=== PATIENT | male | born 1950 | race Caucasian/White ===

== ENCOUNTER 2021-06-09 13:11 | Inpatient (IN) ==
[2021-06-09] MEDS ORDERED: D5% in Water 1,000 ML IVC PRN (15:46)
[2021-06-09] MEDS ORDERED: *HR* Dextrose 50 % in Water (Syg) 50 ML SYRINGE IVP PRN (15:46)
[2021-06-09] MEDS ORDERED: Dextrose Gel 15 GM/37.5 ML TUBE PO PRN ×2 (15:46)
[2021-06-09] MEDS ORDERED: Insulin DETEMIR 100 UNIT/ML per UNIT SUBQ ONE (22:45)
[2021-06-09] MEDS: Apixaban 5 MG TABLET PO SCH (23:40)
[2021-06-09] MEDS: *HR* Metformin 500 MG TABLET PO SCH (23:40)
[2021-06-09] MEDS: BuPROPion SR (12 HR) 150 MG TABLET PO SCH (23:40)
[2021-06-09] MEDS: Insulin LISPRO 300 UNITS/3 ML VIAL SUBQ SCH ×2 (23:50→23:53)
[2021-06-09] MEDS: Pilocarpine 2% OPTH 15 ML BOTTLE LEFT EYE SCH (23:51)
[2021-06-09] MEDS: Brinzolamide 1% 10 ML BOTTLE BOTH EYES SCH (23:51)
[2021-06-09] MEDS: NETARSUDIL MESYLATE 0.02% OP SCH (23:52)
[2021-06-10 06:05] LABS: Eosinophils % 5.3 %; Hematocrit 32.9 % (37.5-50.1); Hemoglobin 10.9 g/dL (12.9-16.9); Immature Granulocytes % 0.7 % (0-4); Lymphocytes % 19.5 %; Mean Corpuscular HGB Conc 33.1 g/dL (31.6-35.5); Mean Corpuscular Hemoglobin 27.1 pg (28.0-33.3); Mean Corpuscular Volume 81.8 fL (83.0-100.0); Monocytes % 12.6 %; Platelet Count 151 K/mcL (140-400); Red Blood Count 4.02 M/mcL (4.19-5.50); Segmented Neutrophils % 61.4 %; White Blood Count 8.1 K/mcL (4.3-11.1)
[2021-06-10 06:06] LABS: Basophils % 0.5 %; Eosinophils # 0.4 K/mcL (0.0-0.6); Lymphocytes # 1.6 K/mcL (0.6-4.6)
[2021-06-10 06:27] LABS: BUN/Creatinine Ratio 15 (6-26); Blood Urea Nitrogen 10 mg/dL (8-23); Calcium 8.4 mg/dL (8.6-10.3); Carbon Dioxide 27 mEq/L (23-29); Chloride 103 mEq/L (98-107); Glucose 181 mg/dL (70-105); Osmolality,Calculated 290 (280-300); Potassium 3.3 mEq/L (3.5-5.1); Sodium 138 mEq/L (136-145); eGFR For African Americans > 60 (> 60); eGFR For Non-African Americans > 60 (> 60)
[2021-06-10] MEDS: lisinopriL 20 MG TABLET PO SCH (08:02)
[2021-06-10] MEDS: amLODIPine 5 MG TABLET PO SCH (08:02)
[2021-06-10] MEDS: Furosemide 40 MG TABLET PO SCH (08:02)
[2021-06-10] MEDS: *HR* Metformin 500 MG TABLET PO SCH ×2 (08:02→20:11)
[2021-06-10] MEDS: Apixaban 5 MG TABLET PO SCH ×2 (08:02→20:11)
[2021-06-10] MEDS: BuPROPion SR (12 HR) 150 MG TABLET PO SCH ×2 (08:02→20:12)
[2021-06-10] MEDS: Insulin LISPRO 300 UNITS/3 ML VIAL SUBQ SCH ×4 (08:03→20:17)
[2021-06-10] MEDS: LIP PO SCH (08:04)
[2021-06-10] MEDS: [UNRECOGNIZED DRUG - OTHER] PO SCH (08:04)
[2021-06-10] MEDS: (Linagliptin [Tradjenta] 5 MG Tablet) PO SCH (08:04)
[2021-06-10] MEDS: ASTX PO SCH (08:04)
[2021-06-10] MEDS: *HR* GlipiZIDE XL (24 HR) 10 MG TABLET PO SCH (08:04)
[2021-06-10] MEDS: GARLIC 1250 MG PO SCH (08:04)
[2021-06-10] MEDS: DHA PO SCH (08:04)
[2021-06-10] MEDS: KRILL PO SCH (08:04)
[2021-06-10] MEDS: EPA PO SCH (08:04)
[2021-06-10] MEDS: Bicalutamide 50 MG TABLET PO SCH (08:05)
[2021-06-10] MEDS: Insulin DETEMIR 100 UNIT/ML X5UNITS SUBQ SCH ×2 (08:11→20:15)
[2021-06-10] MEDS: Pilocarpine 2% OPTH 15 ML BOTTLE LEFT EYE SCH ×4 (08:12→20:17)
[2021-06-10] MEDS: Brinzolamide 1% 10 ML BOTTLE BOTH EYES SCH ×3 (08:12→20:14)
[2021-06-10] MEDS ORDERED: OLANZapine 5 MG TAB.RAPDIS PO SCH (09:00)
[2021-06-10] MEDS: OLANZapine 5 MG TAB.RAPDIS PO SCH (20:10)
[2021-06-10] MEDS: NETARSUDIL MESYLATE 0.02% OP SCH (20:19)
[2021-06-11] MEDS: Insulin LISPRO 300 UNITS/3 ML VIAL SUBQ SCH ×4 (08:52→21:10)
[2021-06-11] MEDS: Bicalutamide 50 MG TABLET PO SCH (09:06)
[2021-06-11] MEDS: *HR* GlipiZIDE XL (24 HR) 10 MG TABLET PO SCH (09:06)
[2021-06-11] MEDS: Apixaban 5 MG TABLET PO SCH ×2 (09:06→21:05)
[2021-06-11] MEDS: *HR* Metformin 500 MG TABLET PO SCH ×2 (09:07→21:05)
[2021-06-11] MEDS: lisinopriL 20 MG TABLET PO SCH (09:07)
[2021-06-11] MEDS: amLODIPine 5 MG TABLET PO SCH ×2 (09:07→12:03)
[2021-06-11] MEDS: BuPROPion SR (12 HR) 150 MG TABLET PO SCH ×2 (09:07→21:05)
[2021-06-11] MEDS: Furosemide 40 MG TABLET PO SCH (09:07)
[2021-06-11] MEDS: ASTX PO SCH (09:08)
[2021-06-11] MEDS: LIP PO SCH (09:08)
[2021-06-11] MEDS: [UNRECOGNIZED DRUG - OTHER] PO SCH (09:08)
[2021-06-11] MEDS: (Linagliptin [Tradjenta] 5 MG Tablet) PO SCH (09:08)
[2021-06-11] MEDS: DHA PO SCH (09:08)
[2021-06-11] MEDS: GARLIC 1250 MG PO SCH (09:08)
[2021-06-11] MEDS: EPA PO SCH (09:08)
[2021-06-11] MEDS: KRILL PO SCH (09:08)
[2021-06-11] MEDS: Pilocarpine 2% OPTH 15 ML BOTTLE LEFT EYE SCH ×4 (09:26→21:11)
[2021-06-11] MEDS: Insulin DETEMIR 100 UNIT/ML X5UNITS SUBQ SCH ×2 (09:26→21:15)
[2021-06-11] MEDS: Brinzolamide 1% 10 ML BOTTLE BOTH EYES SCH ×3 (09:27→21:09)
[2021-06-11] MEDS: OLANZapine 5 MG TAB.RAPDIS PO SCH (21:04)
[2021-06-11] MEDS: NETARSUDIL MESYLATE 0.02% OP SCH (21:13)
[2021-06-12 05:44] LABS: Hematocrit 36.2 % (37.5-50.1); Hemoglobin 11.9 g/dL (12.9-16.9); Mean Corpuscular HGB Conc 32.9 g/dL (31.6-35.5); Mean Corpuscular Hemoglobin 27.1 pg (28.0-33.3); Mean Corpuscular Volume 82.5 fL (83.0-100.0); Platelet Count 202 K/mcL (140-400); Red Blood Count 4.39 M/mcL (4.19-5.50); White Blood Count 10.2 K/mcL (4.3-11.1)
[2021-06-12 06:03] LABS: Alanine Aminotransferase 12 Units/L (7-52); Albumin 3.5 g/dL (3.5-5.7); Albumin/Globulin Ratio 1.1 (1.1-2.2); Alkaline Phosphatase 97 Units/L (34-104); Aspartate Amino Transferase 15 Units/L (13-39); BUN/Creatinine Ratio 16 (6-26); Bilirubin,Total 0.5 mg/dL (0.3-1.0); Blood Urea Nitrogen 11 mg/dL (8-23); Calcium 9.1 mg/dL (8.6-10.3); Carbon Dioxide 29 mEq/L (23-29); Chloride 101 mEq/L (98-107); Globulin 3.3 g/dL (2.4-3.5); Glucose 123 mg/dL (70-105); Magnesium 1.6 mg/dL (1.6-2.6); Osmolality,Calculated 289 (280-300); Potassium 3.6 mEq/L (3.5-5.1); Sodium 139 mEq/L (136-145); Total Protein 6.8 g/dL (6.4-8.9); eGFR For African Americans > 60 (> 60); eGFR For Non-African Americans > 60 (> 60)
[2021-06-12] MEDS: Bicalutamide 50 MG TABLET PO SCH (08:07)
[2021-06-12] MEDS: lisinopriL 20 MG TABLET PO SCH (08:08)
[2021-06-12] MEDS: *HR* Metformin 500 MG TABLET PO SCH ×2 (08:08→22:38)
[2021-06-12] MEDS: BuPROPion SR (12 HR) 150 MG TABLET PO SCH ×2 (08:08→22:40)
[2021-06-12] MEDS: *HR* GlipiZIDE XL (24 HR) 10 MG TABLET PO SCH (08:09)
[2021-06-12] MEDS: amLODIPine 5 MG TABLET PO SCH (08:09)
[2021-06-12] MEDS: Apixaban 5 MG TABLET PO SCH ×2 (08:09→22:38)
[2021-06-12] MEDS: Insulin DETEMIR 100 UNIT/ML X5UNITS SUBQ SCH ×2 (08:09→22:42)
[2021-06-12] MEDS: Insulin LISPRO 300 UNITS/3 ML VIAL SUBQ SCH ×4 (08:11→22:39)
[2021-06-12] MEDS: Furosemide 40 MG TABLET PO SCH (08:12)
[2021-06-12] MEDS: Brinzolamide 1% 10 ML BOTTLE BOTH EYES SCH ×3 (08:12→22:37)
[2021-06-12] MEDS: Pilocarpine 2% OPTH 15 ML BOTTLE LEFT EYE SCH ×4 (08:13→22:39)
[2021-06-12] MEDS: [UNRECOGNIZED DRUG - OTHER] PO SCH (08:25)
[2021-06-12] MEDS: KRILL PO SCH (08:25)
[2021-06-12] MEDS: GARLIC 1250 MG PO SCH (08:25)
[2021-06-12] MEDS: (Linagliptin [Tradjenta] 5 MG Tablet) PO SCH (08:25)
[2021-06-12] MEDS: EPA PO SCH (08:25)
[2021-06-12] MEDS: DHA PO SCH (08:25)
[2021-06-12] MEDS: ASTX PO SCH (08:25)
[2021-06-12] MEDS: LIP PO SCH (08:25)
[2021-06-12] MEDS: OLANZapine 5 MG TAB.RAPDIS PO SCH (22:40)
[2021-06-12] MEDS: NETARSUDIL MESYLATE 0.02% OP SCH (22:41)
[2021-06-13] MEDS: *HR* GlipiZIDE XL (24 HR) 10 MG TABLET PO SCH (08:02)
[2021-06-13] MEDS: BuPROPion SR (12 HR) 150 MG TABLET PO SCH ×2 (08:02→21:05)
[2021-06-13] MEDS: *HR* Metformin 500 MG TABLET PO SCH ×2 (08:02→21:06)
[2021-06-13] MEDS: Insulin DETEMIR 100 UNIT/ML X5UNITS SUBQ SCH ×2 (08:02→21:08)
[2021-06-13] MEDS: amLODIPine 5 MG TABLET PO SCH (08:02)
[2021-06-13] MEDS: Apixaban 5 MG TABLET PO SCH ×2 (08:03→21:06)
[2021-06-13] MEDS: lisinopriL 20 MG TABLET PO SCH (08:03)
[2021-06-13] MEDS: Insulin LISPRO 300 UNITS/3 ML VIAL SUBQ SCH ×4 (08:03→20:56)
[2021-06-13] MEDS: Furosemide 40 MG TABLET PO SCH (08:03)
[2021-06-13] MEDS: Brinzolamide 1% 10 ML BOTTLE BOTH EYES SCH ×3 (08:04→21:06)
[2021-06-13] MEDS: Pilocarpine 2% OPTH 15 ML BOTTLE LEFT EYE SCH ×4 (08:04→21:09)
[2021-06-13] MEDS: KRILL PO SCH (08:05)
[2021-06-13] MEDS: Bicalutamide 50 MG TABLET PO SCH (08:05)
[2021-06-13] MEDS: LIP PO SCH (08:05)
[2021-06-13] MEDS: [UNRECOGNIZED DRUG - OTHER] PO SCH (08:05)
[2021-06-13] MEDS: ASTX PO SCH (08:05)
[2021-06-13] MEDS: DHA PO SCH (08:05)
[2021-06-13] MEDS: GARLIC 1250 MG PO SCH (08:05)
[2021-06-13] MEDS: EPA PO SCH (08:05)
[2021-06-13] MEDS: (Linagliptin [Tradjenta] 5 MG Tablet) PO SCH (08:05)
[2021-06-13] MEDS: OLANZapine 5 MG TAB.RAPDIS PO SCH (21:05)
[2021-06-13] MEDS: NETARSUDIL MESYLATE 0.02% OP SCH (21:08)
[2021-06-14] MEDS: Insulin LISPRO 300 UNITS/3 ML VIAL SUBQ SCH ×4 (08:44→21:04)
[2021-06-14] MEDS: Bicalutamide 50 MG TABLET PO SCH (08:46)
[2021-06-14] MEDS: Insulin DETEMIR 100 UNIT/ML X5UNITS SUBQ SCH ×2 (08:46→21:02)
[2021-06-14] MEDS: BuPROPion SR (12 HR) 150 MG TABLET PO SCH ×2 (08:46→20:56)
[2021-06-14] MEDS: amLODIPine 5 MG TABLET PO SCH (08:47)
[2021-06-14] MEDS: lisinopriL 20 MG TABLET PO SCH (08:47)
[2021-06-14] MEDS: *HR* Metformin 500 MG TABLET PO SCH ×2 (08:47→20:56)
[2021-06-14] MEDS: Furosemide 40 MG TABLET PO SCH (08:47)
[2021-06-14] MEDS: Apixaban 5 MG TABLET PO SCH ×2 (08:47→20:57)
[2021-06-14] MEDS: *HR* GlipiZIDE XL (24 HR) 10 MG TABLET PO SCH (08:47)
[2021-06-14] MEDS: (Linagliptin [Tradjenta] 5 MG Tablet) PO SCH (08:49)
[2021-06-14] MEDS: KRILL PO SCH (08:51)
[2021-06-14] MEDS: LIP PO SCH (08:51)
[2021-06-14] MEDS: [UNRECOGNIZED DRUG - OTHER] PO SCH (08:51)
[2021-06-14] MEDS: DHA PO SCH (08:51)
[2021-06-14] MEDS: ASTX PO SCH (08:51)
[2021-06-14] MEDS: EPA PO SCH (08:51)
[2021-06-14] MEDS: GARLIC 1250 MG PO SCH (08:52)
[2021-06-14] MEDS: Pilocarpine 2% OPTH 15 ML BOTTLE LEFT EYE SCH ×4 (08:52→21:01)
[2021-06-14] MEDS: Brinzolamide 1% 10 ML BOTTLE BOTH EYES SCH ×3 (08:53→20:55)
[2021-06-14] MEDS: OLANZapine 5 MG TAB.RAPDIS PO SCH (20:56)
[2021-06-14] MEDS: NETARSUDIL MESYLATE 0.02% OP SCH (21:05)
[2021-06-15] MEDS: Insulin LISPRO 300 UNITS/3 ML VIAL SUBQ SCH ×4 (08:56→21:32)
[2021-06-15] MEDS: amLODIPine 5 MG TABLET PO SCH (08:57)
[2021-06-15] MEDS: Bicalutamide 50 MG TABLET PO SCH (08:57)
[2021-06-15] MEDS: lisinopriL 20 MG TABLET PO SCH (08:57)
[2021-06-15] MEDS: Furosemide 40 MG TABLET PO SCH (08:57)
[2021-06-15] MEDS: *HR* GlipiZIDE XL (24 HR) 10 MG TABLET PO SCH (08:57)
[2021-06-15] MEDS: BuPROPion SR (12 HR) 150 MG TABLET PO SCH ×2 (08:57→21:29)
[2021-06-15] MEDS: *HR* Metformin 500 MG TABLET PO SCH ×2 (08:57→21:29)
[2021-06-15] MEDS: Apixaban 5 MG TABLET PO SCH ×2 (08:57→21:29)
[2021-06-15] MEDS: Insulin DETEMIR 100 UNIT/ML X5UNITS SUBQ SCH ×2 (08:58→21:29)
[2021-06-15] MEDS: Brinzolamide 1% 10 ML BOTTLE BOTH EYES SCH ×3 (08:58→21:32)
[2021-06-15] MEDS: [UNRECOGNIZED DRUG - OTHER] PO SCH (08:59)
[2021-06-15] MEDS: LIP PO SCH (08:59)
[2021-06-15] MEDS: EPA PO SCH (08:59)
[2021-06-15] MEDS: DHA PO SCH (08:59)
[2021-06-15] MEDS: (Linagliptin [Tradjenta] 5 MG Tablet) PO SCH (08:59)
[2021-06-15] MEDS: ASTX PO SCH (08:59)
[2021-06-15] MEDS: KRILL PO SCH (08:59)
[2021-06-15] MEDS: Pilocarpine 2% OPTH 15 ML BOTTLE LEFT EYE SCH ×4 (08:59→21:30)
[2021-06-15] MEDS: GARLIC 1250 MG PO SCH (08:59)
[2021-06-15] MEDS: OLANZapine 5 MG TAB.RAPDIS PO SCH (21:29)
[2021-06-15] MEDS: NETARSUDIL MESYLATE 0.02% OP SCH (21:32)
[2021-06-16] MEDS: Insulin LISPRO 300 UNITS/3 ML VIAL SUBQ SCH ×4 (08:33→20:38)
[2021-06-16] MEDS: BuPROPion SR (12 HR) 150 MG TABLET PO SCH ×2 (08:51→20:42)
[2021-06-16] MEDS: Bicalutamide 50 MG TABLET PO SCH (08:51)
[2021-06-16] MEDS: lisinopriL 20 MG TABLET PO SCH (08:52)
[2021-06-16] MEDS: *HR* GlipiZIDE XL (24 HR) 10 MG TABLET PO SCH (08:52)
[2021-06-16] MEDS: *HR* Metformin 500 MG TABLET PO SCH ×2 (08:52→20:42)
[2021-06-16] MEDS: amLODIPine 5 MG TABLET PO SCH (08:52)
[2021-06-16] MEDS: Furosemide 40 MG TABLET PO SCH (08:52)
[2021-06-16] MEDS: Brinzolamide 1% 10 ML BOTTLE BOTH EYES SCH ×3 (08:53→20:43)
[2021-06-16] MEDS: Apixaban 5 MG TABLET PO SCH ×2 (08:53→20:42)
[2021-06-16] MEDS: Pilocarpine 2% OPTH 15 ML BOTTLE LEFT EYE SCH ×4 (08:53→20:43)
[2021-06-16] MEDS: (Linagliptin [Tradjenta] 5 MG Tablet) PO SCH (08:53)
[2021-06-16] MEDS: Insulin DETEMIR 100 UNIT/ML X5UNITS SUBQ SCH ×2 (08:54→20:43)
[2021-06-16] MEDS: LIP PO SCH (09:05)
[2021-06-16] MEDS: ASTX PO SCH (09:05)
[2021-06-16] MEDS: [UNRECOGNIZED DRUG - OTHER] PO SCH (09:05)
[2021-06-16] MEDS: EPA PO SCH (09:05)
[2021-06-16] MEDS: DHA PO SCH (09:05)
[2021-06-16] MEDS: KRILL PO SCH (09:05)
[2021-06-16] MEDS: GARLIC 1250 MG PO SCH (09:05)
[2021-06-16] MEDS: OLANZapine 5 MG TAB.RAPDIS PO SCH (20:41)
[2021-06-16] MEDS: NETARSUDIL MESYLATE 0.02% OP SCH (20:44)
[2021-06-17] MEDS: Bicalutamide 50 MG TABLET PO SCH (09:00)
[2021-06-17] MEDS: amLODIPine 5 MG TABLET PO SCH (09:00)
[2021-06-17] MEDS: BuPROPion SR (12 HR) 150 MG TABLET PO SCH ×2 (09:01→20:54)
[2021-06-17] MEDS: DHA PO SCH (09:01)
[2021-06-17] MEDS: Apixaban 5 MG TABLET PO SCH ×2 (09:01→20:55)
[2021-06-17] MEDS: *HR* Metformin 500 MG TABLET PO SCH ×2 (09:01→20:54)
[2021-06-17] MEDS: lisinopriL 20 MG TABLET PO SCH (09:01)
[2021-06-17] MEDS: GARLIC 1250 MG PO SCH (09:01)
[2021-06-17] MEDS: Furosemide 40 MG TABLET PO SCH (09:01)
[2021-06-17] MEDS: EPA PO SCH (09:01)
[2021-06-17] MEDS: ASTX PO SCH (09:01)
[2021-06-17] MEDS: [UNRECOGNIZED DRUG - OTHER] PO SCH (09:01)
[2021-06-17] MEDS: LIP PO SCH (09:01)
[2021-06-17] MEDS: KRILL PO SCH (09:01)
[2021-06-17] MEDS: (Linagliptin [Tradjenta] 5 MG Tablet) PO SCH (09:02)
[2021-06-17] MEDS: *HR* GlipiZIDE XL (24 HR) 10 MG TABLET PO SCH (09:04)
[2021-06-17] MEDS: Pilocarpine 2% OPTH 15 ML BOTTLE LEFT EYE SCH ×4 (09:04→20:56)
[2021-06-17] MEDS: Insulin LISPRO 300 UNITS/3 ML VIAL SUBQ SCH ×4 (09:14→20:48)
[2021-06-17] MEDS: Brinzolamide 1% 10 ML BOTTLE BOTH EYES SCH ×3 (09:16→20:55)
[2021-06-17] MEDS: Insulin DETEMIR 100 UNIT/ML X5UNITS SUBQ SCH (09:19)
[2021-06-17] MEDS: OLANZapine 5 MG TAB.RAPDIS PO SCH (20:54)
[2021-06-17] MEDS: NETARSUDIL MESYLATE 0.02% OP SCH (20:57)
[2021-06-18] MEDS: BuPROPion SR (12 HR) 150 MG TABLET PO SCH ×2 (07:33→22:10)
[2021-06-18] MEDS: *HR* GlipiZIDE XL (24 HR) 10 MG TABLET PO SCH (07:34)
[2021-06-18] MEDS: *HR* Metformin 500 MG TABLET PO SCH ×2 (07:34→22:09)
[2021-06-18] MEDS: lisinopriL 20 MG TABLET PO SCH (07:34)
[2021-06-18] MEDS: Apixaban 5 MG TABLET PO SCH ×2 (07:34→22:10)
[2021-06-18] MEDS: Furosemide 40 MG TABLET PO SCH (07:34)
[2021-06-18] MEDS: Bicalutamide 50 MG TABLET PO SCH (07:34)
[2021-06-18] MEDS: amLODIPine 5 MG TABLET PO SCH (07:34)
[2021-06-18] MEDS: Pilocarpine 2% OPTH 15 ML BOTTLE LEFT EYE SCH ×4 (07:35→22:08)
[2021-06-18] MEDS: Brinzolamide 1% 10 ML BOTTLE BOTH EYES SCH ×3 (07:35→22:08)
[2021-06-18] MEDS: DHA PO SCH (07:38)
[2021-06-18] MEDS: [UNRECOGNIZED DRUG - OTHER] PO SCH (07:38)
[2021-06-18] MEDS: EPA PO SCH (07:38)
[2021-06-18] MEDS: KRILL PO SCH (07:38)
[2021-06-18] MEDS: ASTX PO SCH (07:38)
[2021-06-18] MEDS: GARLIC 1250 MG PO SCH (07:38)
[2021-06-18] MEDS: (Linagliptin [Tradjenta] 5 MG Tablet) PO SCH (07:38)
[2021-06-18] MEDS: LIP PO SCH (07:38)
[2021-06-18] MEDS: Insulin LISPRO 300 UNITS/3 ML VIAL SUBQ SCH ×4 (08:33→22:11)
[2021-06-18] MEDS: NETARSUDIL MESYLATE 0.02% OP SCH (22:09)
[2021-06-18] MEDS: OLANZapine 5 MG TAB.RAPDIS PO SCH (22:10)
[2021-06-19 06:02] LABS: Basophils # 0.1 K/mcL (0.0-0.2); Basophils % 1.4 %; Eosinophils # 0.3 K/mcL (0.0-0.6); Eosinophils % 3.1 %; Hematocrit 39.6 % (37.5-50.1); Hemoglobin 12.7 g/dL (12.9-16.9); Immature Granulocytes % 1.4 % (0-4); Lymphocytes # 2.3 K/mcL (0.6-4.6); Lymphocytes % 24.6 %; Mean Corpuscular HGB Conc 32.1 g/dL (31.6-35.5); Mean Corpuscular Hemoglobin 26.6 pg (28.0-33.3); Mean Platelet Volume 10.1 fL (9.4-12.4); Monocytes # 0.8 K/mcL (0.0-1.3); Monocytes % 8.2 %; Neutrophils # 5.8 K/mcL (1.6-8.9); Platelet Count 250 K/mcL (140-400); Red Blood Count 4.77 M/mcL (4.19-5.50); Red Cell Distribution Width 14.1 % (11.5-14.5); Segmented Neutrophils % 61.3 %; White Blood Count 9.4 K/mcL (4.3-11.1)
[2021-06-19 06:16] LABS: BUN/Creatinine Ratio 27 (6-26); Blood Urea Nitrogen 23 mg/dL (8-23); Calcium 9.4 mg/dL (8.6-10.3); Carbon Dioxide 28 mEq/L (23-29); Chloride 101 mEq/L (98-107); Glucose 124 mg/dL (70-105); Osmolality,Calculated 291 (280-300); Potassium 3.9 mEq/L (3.5-5.1); Sodium 138 mEq/L (136-145); eGFR For African Americans > 60 (> 60); eGFR For Non-African Americans > 60 (> 60)
[2021-06-19] MEDS: amLODIPine 5 MG TABLET PO SCH (07:24)
[2021-06-19] MEDS: lisinopriL 20 MG TABLET PO SCH (07:25)
[2021-06-19] MEDS: *HR* Metformin 500 MG TABLET PO SCH ×2 (07:25→20:04)
[2021-06-19] MEDS: BuPROPion SR (12 HR) 150 MG TABLET PO SCH ×2 (07:25→20:04)
[2021-06-19] MEDS: Furosemide 40 MG TABLET PO SCH (07:25)
[2021-06-19] MEDS: Bicalutamide 50 MG TABLET PO SCH (07:25)
[2021-06-19] MEDS: *HR* GlipiZIDE XL (24 HR) 10 MG TABLET PO SCH (07:25)
[2021-06-19] MEDS: (Linagliptin [Tradjenta] 5 MG Tablet) PO SCH (07:26)
[2021-06-19] MEDS: Apixaban 5 MG TABLET PO SCH ×2 (07:26→20:04)
[2021-06-19] MEDS: Brinzolamide 1% 10 ML BOTTLE BOTH EYES SCH ×3 (07:32→20:06)
[2021-06-19] MEDS: LIP PO SCH (07:32)
[2021-06-19] MEDS: [UNRECOGNIZED DRUG - OTHER] PO SCH (07:32)
[2021-06-19] MEDS: ASTX PO SCH (07:32)
[2021-06-19] MEDS: GARLIC 1250 MG PO SCH (07:32)
[2021-06-19] MEDS: DHA PO SCH (07:32)
[2021-06-19] MEDS: Pilocarpine 2% OPTH 15 ML BOTTLE LEFT EYE SCH ×4 (07:32→21:20)
[2021-06-19] MEDS: KRILL PO SCH (07:32)
[2021-06-19] MEDS: EPA PO SCH (07:32)
[2021-06-19] MEDS: Insulin LISPRO 300 UNITS/3 ML VIAL SUBQ SCH ×4 (07:33→20:07)
[2021-06-19] MEDS: OLANZapine 5 MG TAB.RAPDIS PO SCH (20:04)
[2021-06-19] MEDS: NETARSUDIL MESYLATE 0.02% OP SCH ×2 (20:07→20:27)
[2021-06-20 08:16] VITALS: BP 143/91; PULSE 87; RESP 18; TEMP 97.3
[2021-06-20] MEDS: Bicalutamide 50 MG TABLET PO SCH (09:00)
[2021-06-20] MEDS: lisinopriL 20 MG TABLET PO SCH (09:00)
[2021-06-20] MEDS: BuPROPion SR (12 HR) 150 MG TABLET PO SCH (09:00)
[2021-06-20] MEDS: *HR* GlipiZIDE XL (24 HR) 10 MG TABLET PO SCH (09:01)
[2021-06-20] MEDS: amLODIPine 5 MG TABLET PO SCH (09:01)
[2021-06-20] MEDS: Furosemide 40 MG TABLET PO SCH (09:01)
[2021-06-20] MEDS: Apixaban 5 MG TABLET PO SCH (09:01)
[2021-06-20] MEDS: Insulin LISPRO 300 UNITS/3 ML VIAL SUBQ SCH ×2 (09:01→12:01)
[2021-06-20] MEDS: *HR* Metformin 500 MG TABLET PO SCH (09:01)
[2021-06-20] MEDS: (Linagliptin [Tradjenta] 5 MG Tablet) PO SCH (09:13)
[2021-06-20] MEDS: GARLIC 1250 MG PO SCH (09:13)
[2021-06-20] MEDS: DHA PO SCH (09:14)
[2021-06-20] MEDS: EPA PO SCH (09:14)
[2021-06-20] MEDS: KRILL PO SCH (09:14)
[2021-06-20] MEDS: LIP PO SCH (09:14)
[2021-06-20] MEDS: Pilocarpine 2% OPTH 15 ML BOTTLE LEFT EYE SCH ×2 (09:14→12:49)
[2021-06-20] MEDS: ASTX PO SCH (09:14)
[2021-06-20] MEDS: [UNRECOGNIZED DRUG - OTHER] PO SCH (09:14)
[2021-06-20] MEDS: Brinzolamide 1% 10 ML BOTTLE BOTH EYES SCH ×2 (09:15→12:50)
[2021-06-20 09:37] VITALS: O2SAT 98
== END 2021-06-20 15:50 | disposition home health service (06) | DRG 945 ==
LOC: INPGRE 22:17
PROVIDERS: ADMIT Family Medicine; ATTEND Family Medicine